=== PATIENT | female | born 1970 | race Caucasian/White ===

== ENCOUNTER 2020-01-07 11:00 | Outpatient (RCR) | payer OTHER, MEDICAID, SELFPAY ==
[2019-11-13 09:44] VITALS: BP_SYST 90
--- NOTE | 2019-11-13 10:44 | PTOPEVAL ---
PHYSICAL THERAPY EVALUATION AND PLAN OF CARE Thank you for referring Chanell Baugh to [facility]. Chanell is scheduled for PT 2x/week for 4-8weeks. Please review, sign, date and return this plan of care JENNIFER. I agree with and certify that the following plan of care is medically necessary. Referring Physician Date Attending Provider: Blaze Goodrich MD Evaluation Outpatient Past Medical History Neurological History Hx Migraine Yes Respiratory History Hx Respiratory Disorders No Significant History Gastrointestinal History Hx Gastrointestinal Disorders No Significant History Genitourinary History Hx Other Genitourinary Disorders Yes: only 1 kidney Endocrine History Hx Systemic Lupus Erythematosus Yes Evaluation Information Problem Diagnosis right adhesive capsulitis Onset 6months Subjective Information Chanell is here today with c/o Query Text:As Reported By Patient/ 6months of right shoulder pain Family and decreased use. 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 Cannot take her bra on/off and has a difficult time with deoderant application. She can reach the top of her head and pull up her pants. Self Report Pain Assessment Right Shoulder(s) Reported Pain Level 0 Pain Description Aching,Pulling Pain Frequency Chronic,Intermittent Lowest Pain Intensity 0 Greatest Pain Intensity 7 Pain Aggravating Factors Lifting Pain Relief Interventions Used By Medication Patient Other Alleviating Interventions Tylenol arthritis Pain Score Pain Score 0: Self Report Scapular/ Shoulder Range of Motion Right Shoulder Flexion - Active 115 Shoulder Flexion - Passive 120 Shoulder Abduction - Active 82 Shoulder Abduction - Passive 90 Shoulder Medial Rotation - Active S1 Query Text:Reach Behind the Back Shoulder Lateral Rotation - Active 60 Shoulder Lateral Rotation - Active occiput Query Text:Reach Behind the Head Scapular/Shoulder Right Shoulder Flexion Strength 4+ Good + Shoulder Abduction Strength 4+ Good + Shoulder Medial Rotation Strength 4+ Good + Shoulder Lateral Rotation Strength 4 Good Muscle Length Testing Latissmus Dorsi Muscle Length (R) Moderate Tightness Shoulder Internal Rotators Muscle Length (R) Severe Tightness Shoulder External Rotators Muscle Length (R) Severe Tightness Pectoralis Major- Clavicular Fibers (R) Moderate Tightness Muscle Length
--- NOTE | 2019-12-10 13:25 | PTOPEVAL ---
PHYSICAL THERAPY PROGRESS REPORT AND PLAN OF CARE UPDATE Thank you for referring Chanell Baugh to [facility].? The patient is scheduled to be seen for therapy? 2x/week for 4 weeks. Please review, sign, date and return this plan of care JENNIFER. I agree with and certify that the following plan of care is medically necessary. Referring Physician Date Attending Provider: Blaze Goodrich MD Progress Subjective: Chanell reports she is feeling as though the progress is really slow which is frustrating. She was able to do some weight bearing work during her yoga classes and felt that was overall easier. Continues to feel benefit from skilled PT. Self Report Pain Assessment Right Shoulder(s) Reported Pain Level 3 Pain Description Aching Pain Aggravating Factors Lifting Interventions Used By Clinicians Exercise,Heat,Manual Therapy Techniques Pain Score Pain Score 2: Self Report Additional Pain Score Comments dull ache from this weekend Upper Extremity Range of Motion Scapular/ Shoulder Range of Motion Right Shoulder Flexion - Active 134 Shoulder Flexion - Passive 140 Shoulder Abduction - Active 105 Shoulder Medial Rotation - Active S1 Query Text:Reach Behind the Back Shoulder Lateral Rotation - Active 65 Shoulder Lateral Rotation - Active T1 Query Text:Reach Behind the Head Upper Extremity Muscle Strength Testing Scapular/Shoulder Right Shoulder Flexion Strength 4+ Good + Shoulder Abduction Strength 5 Normal Shoulder Medial Rotation Strength 5 Normal Shoulder Lateral Rotation Strength 5 Normal Palpation improved trigger points in upper trapezius, subscapularis , and latissimus dorsi PT Clinical Summary Chanell is a 49 yo female participating in outaptient physical therapy with diagnosis of adhesive capsulitis. She demonstrates today progress toward meeting her functional goals with increased ROM in flexion and abduction. She continues to demonstrate significant limitation in ROM in rotational directions including behind her back. She will benefit from skilled PT to continue progressing to goals. PT Services Indicated Yes Rehabilitation Potential Excellent Patient/Caregiver's Personal Goals for return to normal function; do Rehabilitation yoga Potential Barriers to Goal Achievements None Support Requirements For Optimal None
--- NOTE | 2019-12-18 09:37 | PCPTNOTE ---
Patient called & cancelled scheduled appointment this date due to not having transportation
--- NOTE | 2019-12-31 11:53 | PCPTNOTE ---
Patient did not show up for scheduled appointment this date; Called patient to verify which she answered the phone realized she wrote the wrong date in the calendar. Patient is aware of appointment on Tuesday and stated she will be here.
--- NOTE | 2020-01-07 11:33 | PTOPEVAL ---
PHYSICAL THERAPY DISCHARGE NOTE Thank you for referring Chanell Baugh to [facility].? The patient will be discharged from therapy at this time. Please review, sign, date and return this plan of care JENNIFER. I agree with and certify that the following plan of care is medically necessary. Referring Physician Date Attending Provider: Blaze Goodrich MD Assessment Status Discharge Diagnosis right adhesive capsulitis Onset 6months Subjective Information Reports she is overall doing Query Text:As Reported By Patient/ well, but continues to have Family exceptional difficulty reaching behind her back. 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 Self Report Pain Assessment Right Shoulder(s) Reported Pain Level 3 Pain Description Aching,Dull,Tender on Palpation Pain Aggravating Factors Lifting Interventions Used By Clinicians Exercise,Heat,Manual Therapy Techniques Pain Score Scapular/ Shoulder Range of Motion Right Shoulder Flexion - Active 145 (11/12: 115, 12/09: 134) Shoulder Abduction - Active 128 (11/12: 82, 12/09: 105) Shoulder Medial Rotation - Active L4 (11/12, 12/09: S1) Query Text:Reach Behind the Back Shoulder Lateral Rotation - Active 72 (11/12: 60, 12/09: 65 Shoulder Lateral Rotation - Active T3 Query Text:Reach Behind the Head Upper Extremity Muscle Strength Testing Scapular/Shoulder Right Shoulder Flexion Strength 5 Normal Shoulder Abduction Strength 5 Normal Shoulder Medial Rotation Strength 5 Normal Shoulder Lateral Rotation Strength 5 Normal Palpation continues to be tenderness over pec muscles and subscapularis; improved trigger points to upper trapezius PT Clinical Summary Chanell has participated in physical therapy for 2 months with significant imporvement in range of motion for flexion , abduction, and external rotation and a significant improvement in right rotator cuff strength. She is participating in massage at least 1x/week and performing HEP. We will discharge at
== END 2020-01-08 13:03 | disposition home or self-care (01) ==
LOC: ANHPT 11:00
PROVIDERS: PCP Nurse Practitioner Family; Visit Provider Orthopaedic Surgery
DX: M75.01 Adhesive capsulitis of right shoulder (principal)
CPT/HCPCS: 97035; 97110; 97140; 97161; 97530

== ENCOUNTER 2020-09-14 13:16 | Emergency (ER) | payer OTHER, MEDICAID, SELFPAY ==
--- NOTE | 2020-09-14 13:23 | ED.SKABFB ---
HPI - Skin/Abscess/Foreign Bdy General Chief complaint: Skin/Abscess/Foreign Body Stated complaint: RASH Time Seen by Provider: 09/14/20 13:23 Source: patient and RN notes reviewed History of Present Illness HPI narrative: Patient is a 50-year-old female who presents the urgent care with complaints of a itchy rash to the abdomen. Patient states she went camping last weekend as well as went [place] see her grandmother's [place] multiple small tics. Patient states that on Tuesday she had a a black dot to the center of the abdomen that kept itching . Patient states she then woke up with the itchy rash over the last 24 hours. Patient states that she has been applying itch relief cream as well as cream for poison ros. Patient has also taken Benadryl. Patient states that she has not had a history of shingles and is uncertain if she did get bit by a tick. Denies of any body aches, fatigue, lethargy, fever, nausea, vomiting. No other acute complaints. No acute distress noted. Patient aware of the plan of care. Some parts of this dictation were generated by voice recognition software and may contain typographical and/or grammatical inaccuracies. Related Data Home Medications Medication Instructions Recorded Confirmed folic acid 1 mg PO DAILY 04/17/19 09/14/20 cholecalciferol (vitamin D3) 10 10 mcg PO DAILY 11/01/19 09/14/20 mcg (400 unit) capsule adalimumab 40 mg/0.8 mL 40 mg SUBCUT ONCE 07/23/20 09/14/20 subcutaneous syringe kit colchicine 0.5 mg PO USEASDIRECTD 09/14/20 09/14/20 hydroxychloroquine [Plaquenil] 200 mg PO DAILY 09/14/20 09/14/20 Allergies Allergy/AdvReac Type Severity Reaction Status Date / Time Penicillins Allergy Unknown Unknown Verified 09/14/20 13:38 Review of Systems Review of Systems: Narrative: CONSTITUTIONAL: Denies fever, chills, or sweats. EYES: Denies visual changes, redness, or discharge. ENT: Denies rhinorrhea, congestion, sore throat, or otalgia. CARDIOVASCULAR: Denies chest pain, palpitations, or edema. RESPIRATORY: Denies cough or dyspnea. GASTROINTESTINAL: Denies abdominal pain, nausea, vomiting, or diarrhea. GENITOURINARY: Denies dysuria or hematuria. SKIN: Reports of an itchy nonpainful red rash to the abdomen MUSCULOSKELETAL: Denies back pain, joint pain, or myalgia. NEUROLOGIC: Denies headache, numbness, or weakness. All other systems reviewed are negative, except as documented in HPI. [facility] Past Medical History Medical History (Updated 09/14/20 @ 13:55 by SAMIRA Morrell) Behcet's disease BMI 34.0-34.9,adult Depression Gout Lupus (systemic lupus erythematosus) Migraines Seasonal allergies Tendonitis left shoulder Trochanteric bursitis, left hip Surgical History Surgical History H/O section 2003, 2006 H/O inguinal hernia repair History of nephrectomy only one kidney left Hx of cholecystectomy Family History Family History Grandparent Family history of migraine headaches Family history of alcoholism Family history of malignant neoplasm of breast, Onset Age: 40 Diabetes mellitus Father Hypertension Patient's father is in good health Family history of alcoholism Cerebrovascular accident Mother Patient's mother is in good health Social History Social History Smoking status: Never smoker Alcohol intake: never Substance use: never Comments At the time of my signature, I reviewed and agree with the nursing past medical, surgical, social, and family history. There is no relevant family history pertinent to the patient complaint. Exam Narrative: Exam Narrative: GENERAL: This is a well-nourished, well-developed patient, in no apparent distress. HEAD: normocephalic, atraumatic. EYES: PERRL. Sclera clear/white. Vision is grossly int
[2020-09-14 13:41] VITALS: BP 107/73; PULSE 84; RESP 16; TEMP 36.6; O2SAT 99
== END 2020-09-14 14:07 | disposition home or self-care (01) ==
PROVIDERS: Emergency Provider Nurse Practitioner Family; PCP Nurse Practitioner Family
DX: L30.9 Dermatitis, unspecified (principal); M35.2 Behcet's disease; M10.9 Gout, unspecified; M32.9 Systemic lupus erythematosus, unspecified
CPT/HCPCS: 99213; G0463

== ENCOUNTER 2020-10-07 11:00 | Outpatient (RCR) | payer OTHER, MEDICAID, SELFPAY ==
--- NOTE | 2020-08-12 11:33 | PTOPEVAL ---
Thank you for referring Chanell Baugh to [facility].? The patient is scheduled to be seen for therapy 2 x/week for 5 weeks. Please review, sign, date and return this plan of care JENNIFER. I agree with and certify that the following plan of care is medically necessary. Referring Physician Date Attending Provider: Blzae Goodrich MD Physical Therapy Evaluation Diagnosis trochanteric bursitis left hip Onset 06/01 Subjective Information She got a new bed and thought Query Text:As Reported By Patient/ the pain was due to that. Pain Family was not improved with yoga. She report pain with yoga movement. The pain would wake her at night. She went to [place] in July with significant walking. Cont pain with the walking. She did wear good shoes with the walking. She c/o numbness in agapito leg with standing. 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 She did receive an injection on 07/23/20 which has helped. She is able to tolerate activities more without symptoms. Pain Assessment Left Hip(s) Reported Pain Level 2 Pain Description Tender on Palpation Pain Frequency Continuous Lowest Pain Intensity 1 Greatest Pain Intensity 4 Pain Aggravating Factors Exercise/Activity Pain Behaviors None Pain Score Pain Score 2: Self Report Cervical and Lumbar ROM Lumbar ROM Lumbar Flexion Active Ankle Query Text:Hands to: Lumbar ROM WNL Lumbar Comments tightness with motion Lower Extremity Range of Motion General Lower Extremity Range of Motion Reason Not Measured WNL/Left,WNL/Right Cervical and Lumbar Muscle Testing Lumbar Strength Upper Abdominal Strength 3 Fair Lower Abdominal Strength 3 Fair Lower Extremity Muscle Strength Testing General Lower Extremity Strength Gross Lower Extremity Strength right hip flex, knee ext/flex and hip ext grossly 5/5, hip abd: 3/5 left hip ext: 4-/5, hip abd: 3 /5, left hip flex, knee flex/ ext: 5/5 Muscle Length Testing Temo Test Shortened Muscles Short (R) Iliopsoas,Short (L) Iliopsoas,Short (R) Rectus Femoris,Short (
--- NOTE | 2020-08-25 16:13 | PCPTNOTE ---
Patient called & cancelled scheduled appointment this date due to not feeling well.
--- NOTE | 2020-09-16 09:50 | PCPTNOTE ---
Patient called & cancelled scheduled appointment this date due to having shingles. Did not reschedule at this time.
--- NOTE | 2020-10-07 15:40 | PTOPEVAL ---
Thank you for referring Chanell Baugh to [facility].? Chanell has received 9 therapy visits to address her hip impairments. She presents with an increase of her symptoms, increased pain and decreased tolerance with activities. She has partially achieved her therapy goals at this time. Recommend she f/u with her doctor due to limited progress with therapy and improved function. No additional therapy planned at this time, unless new orders received. If no additional therapy services request, this note will also be her discharge summary. Please review, sign, date and return this plan of care JENNIFER. I agree with and certify that the following plan of care is medically necessary. Referring Physician Date Attending Provider: Blaze Goodrich MD Physical Therapy Progress Note Diagnosis trochanteric bursitis left hip Onset 06/01 Additional Evaluation Detail She developed tio mountain fever after a camping trip in August. She has been limited on her HEP due to pain and medical changes. Subjective Information The pain in the left hip Query Text:As Reported By Patient/ continues to wake her night. Family She has intermittent numbness into the LE's to knee region. Cont to have left hip pain with the walking. She wears flip flops normally except with distance walking. She did receive an injection on 07/23/20 which has helped initially, but does seem to have wore off. REports increased pain with recent re-start of yoga stretches. Pain Assessment Pain Scale Used Numeric (1 - 10) Self Report Pain Assessment Left Hip(s) Reported Pain Level 5 Pain Description Numbness,Radiating,Tender on Palpation,Tightness,Tingling Pain Radiation Left Leg,Right Leg Pain Frequency Chronic,Continuous Lowest Pain Intensity 3 Greatest Pain Intensity 8 Pain Aggravating Factors Bending,Exercise/Activity, Lifting,Walking,Weight Bearing /Standing Cervical and Lumbar Muscle Testing Lumbar Strength Upper Abdominal Strength 3 Fair Lower Abdominal Strength 3 Fair Lumbar Functional Strength Comments unable to maintain trunk in midline with seated marching Lower Extremity Muscle Strength Testing Hip Strength Left Hip Flexion Strength 3 Fair Hip Extension Strength 4 Good Hip Abduction Strength 3 Fair
== END 2020-10-09 17:14 | disposition home or self-care (01) ==
LOC: ANHPT 11:00
PROVIDERS: PCP Nurse Practitioner Family; Visit Provider Orthopaedic Surgery
DX: M70.62 Trochanteric bursitis, left hip (principal); M54.16 Radiculopathy, lumbar region
CPT/HCPCS: 97014; 97110; 97140; 97162; 97530; G0283

== ENCOUNTER 2020-10-31 14:32 | Outpatient (CLI) | payer OTHER, MEDICAID, SELFPAY ==
--- NOTE | ~2020-10-31 | MR_ITS ---
EXAMINATION: MR lumbar spine wo con EXAM DATE: 10/31/2020 15:09 INDICATION: M54.16 - Radiculopathy, lumbar region. TECHNIQUE: Multi-sequential, multiplanar MR images of the lumbar spine were obtained without contrast . Sagittal T1, T2, T2 fat saturation images. Axial T2 weighted images. There is no prior study for comparison. FINDINGS: Rudimentary S1-S2 disc. The vertebral bodies are aligned in the AP dimension. Vertebral bod y and disc heights are well-maintained. There are no suspicious marrow signal abnormalities. The co nus medullaris terminates at the L1/2 level and has normal signal intensity and morphology. Probable severely atrophic right kidney measuring 2 x 3 cm, likely congenital. Level by level evaluation: L1-L2: There is a minimal diffuse disc bulge. Facet arthropathy: Mild. Neural foraminal stenosis: No stenosis. Central canal stenosis: No stenosis. L2-L3: Disc does not extend beyond the endplate margin. Facet arthropathy: Mild. Neural foraminal stenosis: No stenosis. Central canal stenosis: No stenosis. L3-L4: There is a minimal diffuse disc bulge. Facet arthropathy: Mild. Neural foraminal stenosis: No stenosis. Central canal stenosis: No stenosis. L4-L5: There is a mild diffuse disc bulge. Facet arthropathy: Mild. Neural foraminal stenosis: No stenosis. Central canal stenosis: No stenosis. L5-S1: There is a mild diffuse disc bulge. Facet arthropathy: Mild to moderate right, mild left. Neural foraminal stenosis: No stenosis. Central canal stenosis: No stenosis. IMPRESSION: 1. Mild lumbar spondylosis. No stenosis. 2. Severely atrophic right kidney. Reviewed, dictated and finalized at location A.
== END 2020-10-31 14:33 | disposition home or self-care (01) ==
LOC: ANHIMG 14:34
PROVIDERS: PCP Nurse Practitioner Family; Visit Provider Orthopaedic Surgery
DX: M54.16 Radiculopathy, lumbar region (principal); M47.816 Spondylosis without myelopathy or radiculopathy, lumbar region; N26.1 Atrophy of kidney (terminal)
CPT/HCPCS: 72148

== ENCOUNTER 2021-06-24 09:51 | Outpatient (CLI) | payer OTHER, MEDICAID, SELFPAY ==
--- NOTE | 2021-06-24 11:00 | NEURO_ITS ---
Impression: # Complains of numbness of lower extremities. History of Behcet?s Syndrome. # Normal nerve conduction study including F-waves. # Normal needle/EMG exam. # Clinical correlation recommended. Nerve Conduction Studies Anti Sensory Summary Table Stim Site NR Peak (ms) P-T Amp (?V) Site1 Site2 Delta-P (ms) Dist (cm) Sathish (m/s) Left Sup Fibular Anti Sensory (Ant Lat Mall) 14 cm 3.7 6.2 14 cm Ant Lat Mall 3.7 16.0 43 Right Sup Fibular Anti Sensory (Ant Lat Mall) 14 cm 3.4 11.9 14 cm Ant Lat Mall 3.4 16.0 47 Left Sural Anti Sensory Run #2 (Lat Mall) Calf 3.4 1.5 Calf Lat Mall 3.4 16.0 47 Right Sural Anti Sensory (Lat Mall) Calf 3.5 13.9 Calf Lat Mall 3.5 16.0 46 Motor Summary Table Stim Site NR Onset (ms) O-P Amp (mV) Site1 Site2 Delta-0 (ms) Dist (cm) Sathish (m/s) Left Peroneal Motor (Vastus Med) Ankle 4.9 2.9 Popit Ankle 7.5 37.0 49 Popit 12.4 0.7 Right Peroneal Motor (Vastus Med) Ankle 4.9 2.8 Popit Ankle 7.4 34.0 46 Popit 12.3 2.3 Left Tibial Motor (Abd Chase Brev) Ankle 4.9 11.0 Knee Ankle 8.1 39.0 48 Knee 13.0 7.6 Right Tibial Motor (Abd Chase Brev) Ankle 5.2 7.4 Knee Ankle 7.5 37.0 49 Knee 12.7 8.3 F Wave Studies NR F-Lat (ms) L-R F-Lat (ms) Left Peroneal (Mrkrs) (EDB) 45.99 0.68 Right Peroneal (Mrkrs) (EDB) 45.32 0.68 Left Tibial (Mrkrs) (Abd Hallucis) 46.10 0.59 Right Tibial (Mrkrs) (Abd Hallucis) 45.51 0.59 EMG Side Muscle Nerve Root Ins Act Fibs Amp Dur Recrt Comment Right AntTibialis Dp Br Fibular L4-5 Nml Nml Nml Nml Nml Right Gastroc Tibial S1-2 Nml Nml Nml Nml Nml Right Fibularis Long Sup Br Fibular L5-S1 Nml Nml Nml Nml Nml Right Flex Dig Long Tibial L5-S2 Nml Nml Nml Nml Nml Right Ext Dig Brev Dp Br Fibular L5, S1 Nml Nml Nml Nml Nml Left AntTibialis Dp Br Fibular L4-5 Nml Nml Nml Nml Nml Left Gastroc Tibial S1-2 Nml Nml Nml Nml Nml Left Fibularis Long Sup Br Fibular L5-S1 Nml Nml Nml Nml Nml Left Flex Dig Long Tibial L5-S2 Nml Nml Nml Nml Nml Left Ext Dig Brev Dp Br Fibular L5, S1 Nml Nml Nml Nml Nml Right QuadratusFem QuadFemoris L4-5, S1 Nml Nml Nml Nml Nml Left QuadratusFem QuadFemoris L4-5, S1 Nml Nml Nml Nml Nml MTDD
== END 2021-06-24 09:52 | disposition home or self-care (01) ==
LOC: ANHNEURO 09:52
PROVIDERS: PCP Nurse Practitioner Family; Visit Provider Nurse Practitioner Family
DX: G62.9 Polyneuropathy, unspecified (principal)
CPT/HCPCS: 95886; 95910

== ENCOUNTER 2022-02-16 11:40 | Outpatient (CLI) | payer OTHER, MEDICAID, SELFPAY | END 2022-02-16 11:41 | disposition home or self-care (01) | LOC: ANHLAB 11:41 | PROVIDERS: PCP Nurse Practitioner Family; Visit Provider Obstetrics & Gynecology | DX: N94.6 Dysmenorrhea, unspecified (principal) | CPT/HCPCS: 36415; 86850; 86900; 86901 ==

== ENCOUNTER 2022-02-17 00:39 | Day surgery (SDC) | payer OTHER, MEDICAID, SELFPAY ==
[2022-02-15 16:56] VITALS: BMI 32.8
--- NOTE | 2022-02-15 17:31 | PC.NURSE ---
Report to the Outpatient Waiting Room, entrance under the green pavilion located off [facility], at time 0600 on date _02/17/22. Planned Procedure Time: 0730. Time changes happen often and if your time is changed the preop area will call you the afternoon before. - You and your visitor will be asked to self-screen and do not enter if you have any COVID symptoms. - We encourage only one visitor and NO visitors under age 16 are allowed at this time. Your visitor will receive communication by the phone number that is given day of service. - The patient visitor is requested to social distance or may leave the building when not with patient due to restrictions. - A mask is required within the hospital. Patients may have clear liquids (water, carbonated beverages, clear teas, apple juice) until 3 hours prior to surgery with a maximum of 20 ounces. - No food from midnight until time of surgery - Infants may have breast milk until 4 hours before surgery, formula 6 hours prior to surgery. - Children will be allowed to drink immediately following surgery. If applicable, please bring a bottle or sippy cup to assist with drinking. Juice, water, soda, and popsicles are readily available. For infants on formula, please bring formula the day of surgery. Pacifiers are allowed. Take the following medications with a SIP of water the morning of surgery: Medications to discontinue per physician _folic acid, vitamin d Date to take last dose 02/14/22 Please no make-up, nail sammarinese, hairspray, perfume, deodorant, or body powder the day of surgery. No jewelry (including any body piercings) or valuables the day of surgery, leave them at home. Please take a shower or bath the night before, or the morning of, surgery with an antibacterial soap. Wear comfortable, loose fitting clothing. Children are encouraged to wear pajamas. - Jewelry must be removed prior to entering the operating room. Rings and piercings that are not removed may be cut off. - The hospital will not accept responsibility for valuables. - Please leave all valuables, including medications, at home the day of surgery. If you are going home after surgery, a licensed skidder driver must drive you home. - NO public transportation without another adult. - We recommend that an adult stay with you for 24 hours following discharge. - We also recommend that you do not drive, make important decision, drink alcoholic beverages, or take any drugs that were not prescribed by your health care provider for at least 24 hours after your discharge time. For Pediatric surgeries, we recommend two adults accompany the child home. Follow any additional instructions given to you from your surgeon. If you or anyone in your household have experienced Covid symptoms in the past week, please notify your surgeon or the nurse liaison at the phone number below for possible testing. Telephone instructions given to Chanell Baugh and asked if any additional questions and then verbalized understanding. Patient advised to call surgeon office or pre surgery nurse liaison [phone] if any additional questions.
[2022-02-17] VITALS (10 sets, daily range): BP systolic 99–120; BP diastolic 65–79; PULSE 65–98; RESP 14–20; TEMP 36–36.9; O2SAT 90–100
[2022-02-17] MEDS: LACTATED RINGERS 1,000 ML 150 ML IV CONT (06:41)
[2022-02-17] MEDS: ACETAMINOPHEN 500 MG TABLET 1000 MG PO (06:47)
[2022-02-17] MEDS: KETOROLAC 15 MG/ML VIAL (*BKC) IV PUSH (06:47)
--- NOTE | 2022-02-17 06:51 | WPDANESEPPF ---
Anes - Initial Pre Proc Eval Procedure: Operation Date: 02/17/22 07:30 Proposed Procedures p Total Laparoscopic Hysterectomy, Bilateral Salpingectomy - Maureen Pino MD Date/Time: 02/17/22 06:51 Surgeon: Maureen Pino MD Pre Op Diagnosis: dysmenorrhea Patient Data Age: 52 Gender: F Height: 1.6 m Weight: 85.9 kg Last Vital Signs Temp 36.9 C 02/17/22 06:28 Pulse 82 02/17/22 06:28 Resp 16 02/17/22 06:28 BP 117/66 02/17/22 06:28 Pulse Ox 98 02/17/22 06:28 O2 Del Method Room Air 02/17/22 06:28 Allergies Allergy/AdvReac Type Severity Reaction Status Date / Time Penicillins Allergy Unknown Unknown Verified 02/17/22 06:18 Home Medications Medication Instructions Recorded Confirmed Type folic acid 1 mg tablet 1 mg PO DAILY 04/17/19 02/17/22 History cholecalciferol (vitamin D3) 10 10 mcg PO DAILY 11/01/19 02/17/22 History mcg (400 unit) capsule hydroxychloroquine 200 mg tablet 200 mg PO DAILY 09/14/20 02/17/22 History (Plaquenil) amitriptyline 10 mg tablet 10 mg PO HS 02/15/22 02/17/22 History infliximab 100 mg intravenous 100 mg IV MONTHLY 02/15/22 02/17/22 History solution (Remicade) methotrexate sodium 2.5 mg tablet 2.5 mg PO WEEKLY 02/15/22 02/17/22 History norethindrone-e.estradiol 1 tablet PO DAILY 02/15/22 02/17/22 History triphasic 0.5 mg/0.75 mg/1 mg-35 mcg tablet sertraline 100 mg tablet 100 mg PO DAILY 02/15/22 02/17/22 History tirzepatide 2.5 mg/0.5 mL 2.5 mg subcut WEEKLY 02/15/22 02/17/22 History subcutaneous pen injector (Mounjaro) Patient hx anesthesia problems: none Family hx anesthesia problems: none Results Review: All pre-operative results and documents have been reviewed as part of the pre-operative evaluation. [facility] [place] Past Medical History Medical History Behcet's disease BMI 34.0-34.9,adult Depression Gout Lumbar and sacral arthritis Lupus (systemic lupus erythematosus) Migraines Seasonal allergies Tendonitis left shoulder Trochanteric bursitis, left hip Surgical History Surgical History H/O section 2003, 2006 H/O inguinal hernia repair History of nephrectomy only one kidney left Hx of cholecystectomy Family History Family History Grandparent Family history of migraine headaches Family history of alcoholism Family history of malignant neoplasm of breast, Onset Age: 40 Diabetes mellitus Father Hypertension Patient's father is in good health Family history of alcoholism Cerebrovascular accident Mother Patient's mother is in good health Social History Social History Smoking status: Never smoker Alcohol intake: never Substance use: never Living arrangements: with family Spiritual care concerns: No Anes - Eval Final PreProcedure Day of Procedure 02/17/22 06:51 Patient weight: obese Heart: regular rate and rhythm Lungs: clear to auscultation Airway: Mallampati scale class II Neurological: alert and oriented Last oral intake: >/= 8 hours ASA classification: III Emergent: no Anesthetic plan: proceed Anesthesia type and monitoring: general ETT and standard monitoring Results Review: All pre-operative results and documents have been reviewed as part of the pre-operative evaluation. Informed Consent: The patient's anesthetic plan and its attendant risks and benefits were discussed with the patient/family/POA. Questions were solicited and answers provided to the satisfaction of the patient/family/POA.
--- NOTE | 2022-02-17 07:15 | WPDHPUPDATE1 ---
History and Physical Update Update Date/Time: 02/17/22 07:15 History and Physical has been reviewed, including an updated exam of the patient. There are NO changes in the patient's condition. Risks, benefits, and alternatives have been discussed and questions answered. Patient agrees to proceed with procedure.
[2022-02-17] MEDS: ceFAZolin 2 GM/D5W 50 ML 2 GM/50 ML BAG IVPB (07:26)
[2022-02-17] MEDS: ceFAZolin SODIUM 1 GM VIAL (08:33)
[2022-02-17] MEDS: LACTATED RINGERS 1,000 ML 30 ML IV CONT (09:31)
--- NOTE | 2022-02-17 09:52 | W.PM.PROC2 ---
Procedure Note - Detailed Date of Procedure 02/17/22 Pre-op Diagnosis dysmenorrhea Post-op Diagnosis Same Procedure Performed Total laparoscopic hysterectomy. Surgeon Maureen Pino MD Anesthesia General Description of Procedure This patient was taken to the operating room. She was prepped and draped in the dorsal lithotomy position after induction of general anesthesia. The uterine manipulator and Talib cup were placed. This was done with a speculum and tenaculum. The speculum was placed. The cervix was grasped with a tenaculum. The stay sutures were placed at 3 and 9:00 a.m.. The stay sutures of 0 Vicryl were brought through the appropriately sized Talib cup. The tip of the EULALIA manipulator was placed in the intrauterine cavity. The cup was slid into place around the cervix and into the fornices. It was locked into place. The sutures were then wrapped around the handle and tied under tension. A 5 mm skin incision was made in the left upper quadrant the abdomen. A 5 mm trocar was inserted into the intrauterine cavity under direct visualization of the scope. Pneumoperitoneum was achieved. A left lower quadrant 11 mm incision was made with scalpel. An 11 mm trocar was inserted into the anterior abdominal cavity under direct visualization the scope. A 5 mm infraumbilical incision was made with a scalpel and a 5 mm trocar was inserted the intra-abdominal cavity under direct visualization of the scope. Bilateral ureteral lysis was performed. This was done from the pelvic brim down to the uterine artery. This was done with careful dissection using sharp and blunt dissection. The fallopian tubes were removed bilaterally. The mesosalpinx around the fallopian tubes were cauterized transected with LigaSure cautery. This was done in a bilateral fashion from the ovary to the uterine cornua. The fallopian tube was transected at the uterine cornu and amputated. The tube was taken out the left lower quadrant trocar site. In a stepwise fashion along the lateral aspects of the uterus the round ligament and broad ligaments were cauterized transected down to the level of the uterine arteries. A bladder flap was created in the bladder was moved distally to the end of the cervix and over the Talib cup. The bilateral uterine arteries were cauterized and transected. Colpotomy was then performed. In a circumferential fashion the vagina was transected using unipolar cautery. The incision was made down on the Talib cup. The uterus and cervix were taken out through the vagina. A pneumo occluder was placed in the vagina. The vaginal cuff was closed with a 0 V lock suture in a running fashion. The pelvis was irrigated with copious amounts antibiotic irrigation. The ureters were again examined and found to be intact and flowing freely under the uterine arteries into the bladder. The bladder was intact. It was examined directly. The vagina was irrigated with Betadine solution after removal of the Pneumo occluder. The patient was taken to recovery room. She was stable condition. Sponge lap and needle counts were correct x2. Estimated Blood Loss 200 Drains Yes Packing No Pathology Yes Complications No immediate complications Condition Stable Disposition Floor
[2022-02-17] MEDS: fentaNYL CITRATE INJ (*CRX) 100 MCG/2 ML VIAL 25 MCG IV PUSH ×3 (10:09→10:33)
[2022-02-17] MEDS: KETOROLAC 30 MG/ML VIAL (*BKC) IV PUSH (11:00)
[2022-02-17] MEDS: DEXTROSE 5%/0.45% SOD CHL 1,000 ML 125 ML IV CONT (11:00)
[2022-02-17] MEDS: HYDROcodone/acetaminophen (*CRX) 10-325 MG TABLET 1 TAB PO ×3 (15:31→21:18)
[2022-02-17] MEDS: AMITRIPTYLINE HCL 10 MG TABLET PO (19:59)
[2022-02-17] MEDS: HYDROXYCHLOROQUINE SULFATE 200 MG TABLET PO (19:59)
[2022-02-17] MEDS: CHOLECALCIFEROL 400 UNITS TABLET (VIT D) PO (20:01)
[2022-02-17] MEDS: FOLIC ACID 1 MG TABLET PO (20:01)
[2022-02-17] MEDS: SERTRALINE HCL 50 MG TABLET 100 MG PO (20:01)
[2022-02-18] MEDS: HYDROcodone/acetaminophen (*CRX) 5-325 MG TABLET 1 TAB PO ×2 (04:12→07:36)
[2022-02-18 04:15] VITALS: BP 105/62; PULSE 78; RESP 16; TEMP 36.6; O2SAT 95
[2022-02-18 07:45] VITALS: BP 114/61; PULSE 78; RESP 16; TEMP 37.4; O2SAT 99
--- NOTE | 2022-02-18 07:50 | WPDANESPN ---
Anes - Prog Note Post-Op Date/Time: 02/18/22 07:50 Cardiovascular status: normal Respiratory status: normal Airway patency: baseline Mental status: baseline Post-Op hydration status: normal Vital Signs: Last Vital Signs Temp 36.6 C 02/18/22 04:15 Pulse 78 02/18/22 04:15 Resp 16 02/18/22 04:15 BP 105/62 02/18/22 04:15 Pulse Ox 95 02/18/22 04:15 O2 Del Method Nasal Cannula 02/17/22 10:45 O2 Flow Rate 2 02/17/22 10:45 Pain Score (VAS): 06/18 I/O: Intake & Output 02/17/22 02/17/22 02/18/22 15:59 23:59 07:59 Intake Total 350 1000 Output Total 320 350 Balance 30 650 Post-procedural complaints: none Patient Feedback: Patient satisfied with anesthetic care.
--- NOTE | 2022-02-18 08:13 | PM.GYNPNOP ---
AUTO REFINISHER - A/P Postoperative Procedures: Procedures Operation Date: 02/17/22 07:30 Actual Procedure Side Surgeon p Total Laparoscopic Hysterectomy, Bilateral Salpingectomy Bilateral Maureen Pino MD Postoperative day: 1 Postoperative status: doing well Postoperative plan: see orders Time Spent With Patient Time: Total time spent is greater than 50% in coordination of care (as documented) at patient's floor/unit and/or counseling patient: Time with patient: less than 15 minutes AUTO REFINISHER- PN:Subj Post-Op Subjective Date/time seen: 02/18/22 08:13 Subjective: patient reports feeling better, patient has no complaints and pain is well controlled Exam Const: General: healthy appearing, comfortable and no acute distress Resp: Auscultation: clear to auscultation bilaterally, no rales, no rhonchi and no wheezes Cardio: Rate: regular rate Heart sounds: no click, no murmurs and no rubs GI: Inspection: non-distended Auscultation: normal bowel sounds Extrem: General: normal to inspection, no pedal edema and no calf tenderness AUTO REFINISHER - PN: Obj Data Vital Signs Vital Signs: Vital Signs - 24 hr 02/17/22 09:31 02/17/22 09:45 02/17/22 10:00 Temperature 97.5 F L Pulse Rate 76 72 66 Respiratory Rate 16 14 18 Blood Pressure 117/72 99/71 L 110/75 Pulse Oximetry 100 100 100 Oxygen Delivery Simple Face Mask Simple Face Mask Simple Face Mask Oxygen Flow Rate 6 6 6 02/17/22 10:05 02/17/22 10:20 02/17/22 10:35 Temperature 96.9 F L Pulse Rate 74 70 65 Respiratory Rate 20 14 16 Blood Pressure 119/65 113/79 108/68 Pulse Oximetry 100 90 96 Oxygen Delivery Room Air Nasal Cannula Nasal Cannula Oxygen Flow Rate 2 2 02/17/22 10:45 02/17/22 10:45 02/17/22 18:36 Temperature 96.8 F L 98.3 F Pulse Rate 65 66 89 Respiratory Rate 16 14 18 Blood Pressure 117/71 120/67 Pulse Oximetry 96 97 96 Oxygen Delivery Nasal Cannula Oxygen Flow Rate 2 02/17/22 23:45 02/18/22 04:15 02/18/22 04:15 Temperature 98.4 F 98 F Pulse Rate 98 78 78 Respiratory Rate 16 16 16 Blood Pressure 113/69 105/62 Pulse Oximetry 95 95 95 Oxygen Delivery Oxygen Flow Rate Intake/Output Intake/Output: Intake & Output 02/15/22 02/16/22 02/17/22 02/18/22 23:59 23:59 23:59 23:59 Intake Total 1400 Output Total 670 Balance 730 Meds/Results Medications: Active Medications Generic Name Dose Route Start Last Admin Trade Name Freq PRN Reason Stop Dose Admin Hydrocodone Bitart/Acetaminophen 1 tab 02/17/22 10:41 02/18/22 07:36 Hydrocodone/Acetaminophen (*Crx) 5-325 Mg Tablet PO 1 tab Q3H PRN Administration Pain Rated 5 or Less Hydrocodone Bitart/Acetaminophen 1 tab 02/17/22 10:41 02/17/22 21:18 Hydrocodone/Acetaminophen (*Crx) 10-325 Mg Tablet PO 1 tab Q3H PRN Administration Pain Rated 6 or Greater Amitriptyline HCl 10 mg 02/17/22 21:00 02/17/22 19:59 Amitriptyline Hcl 10 Mg Tablet PO 10 mg HS TRA Administration Folic Acid 1 mg 02/17/22 11:00 02/17/22 20:01 Folic Acid 1 Mg Tablet PO 1 mg DAILY TRA Administration Hydroxychloroquine Sulfate 200 mg 02/17/22 21:00 02/17/22 19:59 Hydroxychloroquine Sulfate 200 Mg Tablet PO 200 mg HS TRA Administration Ibuprofen 600 mg 02/17/22 10:41 Ibuprofen 600 Mg Tablet PO Q6H PRN Cramping Ketorolac Tromethamine 30 mg 02/17/22 10:41 02/17/22 11:00 Ketorolac 30 Mg/Ml Vial (*Bkc) IV PUSH 02/22/22 10:40 30 mg Q6H PRN Administration Pain Rated 4-6 Methotrexate 2.5 mg 02/24/22 09:00 Methotrexate 2.5 Mg Tab (*Chemo) PO WEEKLY TRA Miscellaneous Information 0 each 02/17/22 00:01 Norethindrone-Estradial Nonform Can Pt Bring From Home? XX 03/19/22 00:00 CLARIFY TRA Miscellaneous Information 0 each 02/17/22 00:01 Methotrexate 2.5mg 4 Times Weekly Please Clarify Days Of Week Pt Takes And When Next Dose XX 03/19/22 00:00 CLARIFY TRA Miscellaneous Information 0 e
== END 2022-02-18 10:51 | disposition home or self-care (01) ==
LOC: ANHSURGERY 06:09 → ANHOB2 10:44
PROVIDERS: PCP Nurse Practitioner Family; Visit Provider Obstetrics & Gynecology
PROC: 0UT9FZZ Resection of Uterus, Via Natural or Artificial Opening With Percutaneous Endoscopic Assistance (ICD-10-PCS; CPT 58571; principal; 2022-02-17 07:30)
DX: N94.6 Dysmenorrhea, unspecified (principal); D25.9 Leiomyoma of uterus, unspecified; N72 Inflammatory disease of cervix uteri; N83.8 Other noninflammatory disorders of ovary, fallopian tube and broad ligament; M35.2 Behcet's disease; M32.9 Systemic lupus erythematosus, unspecified; F32.A Depression, unspecified; Z90.5 Acquired absence of kidney; E66.9 Obesity, unspecified; Z68.33 Body mass index [BMI] 33.0-33.9, adult
CPT/HCPCS: 58571; 88307; 88342; 99199; A9270; J0330; J0461; J0690; J1100; J1885; J2250; J2370; J2405; J2704; J2710; J3010; J7030; J7120

== ENCOUNTER 2022-09-16 12:33 | Outpatient (CLI) | payer OTHER, MEDICAID, SELFPAY ==
--- NOTE | ~2022-09-16 | MR_ITS ---
MRI of the right elbow Clinical history: Pain TECHNIQUE: Proton-density and proton-density fat-sat images were acquired in the axial, coronal, and sagittal planes. FINDINGS: Ulnar collateral ligament is intact. Radial collateral ligament and the lateral ulnar colla teral ligament are intact. There is high-grade partial tearing at the common extensor tendon origin a t the lateral epicondyle of the humerus. Common flexor tendon origin is unremarkable. Bone marrow signals are unremarkable. No articular abnormality of the elbow evident. No significant e lbow joint effusion. Brachialis, biceps, and triceps tendons are intact. Visualized muscles demonstrate normal signal inte nsity. Subcutaneous soft tissues are unremarkable. IMPRESSION: High-grade partial tearing of the common extensor tendon origin at the lateral epicondyle of the randy yvan. Reviewed, dictated and finalized at location . IMPRESSION: High-grade partial tearing of the common extensor tendon origin at the lateral epicondyle of the humerus.
== END 2022-09-16 12:34 | disposition home or self-care (01) ==
LOC: ANHIMG 12:35
PROVIDERS: PCP Nurse Practitioner Family
DX: S53.491A Other sprain of right elbow, initial encounter (principal); X58.XXXA Exposure to other specified factors, initial encounter
CPT/HCPCS: 73221

== ENCOUNTER 2023-01-10 01:06 | Day surgery (SDC) | payer OTHER, MEDICAID, SELFPAY ==
[2023-01-05 12:39] VITALS: BMI 29.5
--- NOTE | 2023-01-05 12:45 | PC.NURSE ---
Report to the Outpatient Waiting Room, entrance under the green pavilion located off [facility], at time 0600 on date 01/10/23. Planned Procedure Time: 0730. Time changes happen often and if your time is changed the preop area will call you the afternoon before. - You and your visitor will be asked to self-screen and do not enter if you have any COVID symptoms. - A mask is optional within the hospital at this time. Patients may have clear liquids (water, carbonated beverages, clear teas, apple juice) until 3 hours prior to surgery with a maximum of 20 ounces. - No food from midnight until time of surgery Take the following medications with a SIP of water the morning of surgery: NONE DO NOT STOP ANY OF YOUR OTHER PRESCRIPTION MEDICATIONS PRIOR TO SURGERY ?EXCEPT THE FOLLOWING Medications to discontinue per physician: VITAMINS/SUPPLEMENTS Date to take last dose: 01/06/23 DO NOT TAKE WEEKLY (TUESDAY) DOSE OF MOUNJARO Please no make-up, nail portuguese, hairspray, perfume, deodorant, or body powder the day of surgery. No jewelry (including any body piercings) or valuables the day of surgery, leave them at home. Please take a shower or bath the night before, or the morning of, surgery with an antibacterial soap. Wear comfortable, loose fitting clothing. - Jewelry must be removed prior to entering the operating room. Rings and piercings that are not removed may be cut off. - The hospital will not accept responsibility for valuables. - Please leave all valuables, including medications, at home the day of surgery. If you are going home after surgery, a licensed river driver must drive you home. - NO public transportation without another adult if you receive anesthesia. - We recommend that an adult stay with you for 24 hours following discharge. - We also recommend that you do not drive, make important decision, drink alcoholic beverages, or take any drugs that were not prescribed by your health care provider for at least 24 hours after your discharge time. Follow any additional instructions given to you from your surgeon. If you or anyone in your household have experienced Covid symptoms in the past week, please notify your surgeon or the nurse liaison at the phone number below for possible testing. Telephone instructions given to PT - JAZMYNE ROBIN and asked if any additional questions and then verbalized understanding. Patient advised to call surgeon office or pre surgery nurse liaison [phone] if any additional questions.
[2023-01-10] VITALS (9 sets, daily range): BP systolic 106–132; BP diastolic 60–83; PULSE 79–98; RESP 15–18; TEMP 36.2–36.5; O2SAT 92–100
[2023-01-10] MEDS: KETOROLAC 15 MG/ML VIAL (*BKC) IV PUSH (06:42)
[2023-01-10] MEDS: ACETAMINOPHEN 500 MG TABLET 1000 MG PO (06:42)
--- NOTE | 2023-01-10 07:15 | WPDANESEPPF ---
Anes - Initial Pre Proc Eval Procedure: Operation Date: 01/10/23 07:30 Proposed Procedures p Debridement of Right Lateral Epicondyle - Blaze Goodrich MD Date/Time: 01/10/23 07:15 Surgeon: Blaze Goodrich MD Pre Op Diagnosis: Right Lateral Epicondylitis Patient Data Age: 52 Gender: F Height: 1.6 m Weight: 75.75 kg Allergies Allergy/AdvReac Type Severity Reaction Status Date / Time Penicillins Allergy Unknown Unknown Verified 01/05/23 12:37 Home Medications Medication Instructions Recorded Confirmed Type folic acid 1 mg tablet 1 mg PO DAILY 04/17/19 01/05/23 History amitriptyline 10 mg tablet 10 mg PO HS 02/15/22 01/05/23 History infliximab 100 mg intravenous 100 mg IV MONTHLY 02/15/22 01/05/23 History solution (Remicade) methotrexate sodium 2.5 mg tablet 2.5 mg PO WEEKLY 02/15/22 01/05/23 History sertraline 100 mg tablet 100 mg PO HS 02/15/22 01/05/23 History tirzepatide 2.5 mg/0.5 mL 2.5 mg subcut WEEKLY 02/15/22 01/05/23 History subcutaneous pen injector (Mounjaro) duloxetine 30 mg capsule,delayed 30 mg PO HS 01/05/23 01/05/23 History release Patient hx anesthesia problems: none Family hx anesthesia problems: none Results Review: All pre-operative results and documents have been reviewed as part of the pre-operative evaluation. [facility] Past Medical History Medical History Behcet's disease BMI 34.0-34.9,adult Depression Gout Impingement of left shoulder Lumbar and sacral arthritis Lupus (systemic lupus erythematosus) Migraines Right lateral epicondylitis Seasonal allergies Tendonitis left shoulder Trochanteric bursitis, left hip Surgical History Surgical History H/O section 2003, 2006 H/O inguinal hernia repair History of nephrectomy only one kidney left History of partial hysterectomy Hx of cholecystectomy Family History Family History Grandparent Family history of migraine headaches Family history of alcoholism Family history of malignant neoplasm of breast, Onset Age: 40 Diabetes mellitus Father Hypertension Patient's father is in good health Family history of alcoholism Cerebrovascular accident Mother Patient's mother is in good health Social History Social History Smoking status: Never smoker Alcohol intake: current Alcohol use details: VERY RARE Substance use: never Substance use type: does not use Lack of Transportation: No Lack of Food: Never True Current Housing: I Have Housing Concerned About Future Housing: No Difficulty Paying Gas/Electric Bills: No Difficulty Paying for Meds: No Currently Unemployed: No Education: Associate Degree Difficulty w/ Childcare or Family Care: No Living arrangements: with family Occupation/Education: unemployed Spiritual care concerns: No Anes - Eval Final PreProcedure Day of Procedure 01/10/23 07:15 Patient weight: overweight Heart: regular rate and rhythm Lungs: clear to auscultation Airway: Mallampati scale class II Neurological: alert and oriented Last oral intake: >/= 8 hours ASA classification: III Emergent: no Anesthetic plan: proceed Anesthesia type and monitoring: general GIVS and standard monitoring Results Review: All pre-operative results and documents have been reviewed as part of the pre-operative evaluation. Informed Consent: The patient's anesthetic plan and its attendant risks and benefits were discussed with the patient/family/POA. Questions were solicited and answers provided to the satisfaction of the patient/family/POA.
--- NOTE | 2023-01-10 07:17 | WPDHPUPDATE1 ---
History and Physical Update Update Date/Time: 01/10/23 07:17 History and Physical has been reviewed, including an updated exam of the patient. There are NO changes in the patient's condition. Risks, benefits, and alternatives have been discussed and questions answered. Patient agrees to proceed with procedure.
[2023-01-10] MEDS: ceFAZolin 2 GM/D5W 50 ML 2 GM/50 ML BAG IVPB (07:28)
[2023-01-10] MEDS: BUPIVACAINE/EPINEPHRINE 0.5% 10 ML VIAL INFILTRATE (07:55)
[2023-01-10] MEDS: LACTATED RINGERS 1,000 ML 30 ML IV CONT (08:09)
--- NOTE | 2023-01-10 08:14 | P.OP_ITS ---
Procedure Note - Detailed Date of Procedure 01/10/23 Pre-op Diagnosis Right Lateral Epicondylitis Post-op Diagnosis Same Procedure Performed Debride right lateral epicondyle with partial epicondylectomy Surgeon Blaze Goodrich MD Maintenance Technician [employer]d Shift Wenceslao Anesthesia General Description of Procedure The patient was identified and the proper side identified. Was taken the operating room transferred to the OR table placing her supine take care to pad her torso and extremities. After general anesthetic induction and intubation, nonsterile tourniquet was placed high on the right arm. Right upper extremity was prepped and draped in usual sterile fashion. Extremity was exsanguinated and the tourniquet was inflated to 200 millimeters of mercury remaining up for about 20 minutes. Longitudinal incision was made over the lateral epicondyle and common extensor origin. Subcutaneous tissue was sharply dissected protecting neurovascular structures down to the lateral epicondyle. Forearm fascia was freed up off of the tendinous origin which revealed an area of hyperemia. Tendon was released from the lateral condyle divided in a T-fashion. Degenerative tendon was removed from within. Partial epicondylectomy was performed. Wound was irrigated. Surgical site was then injected with a few cc of 0.5% Marcaine and epinephrine solution. As where the deeper layers of the subcu. Skin was reapproximated with 3-0 Prolene subcuticular stitch and Steri- Strips were applied. Dressing was applied. Tourniquet was released. She tolerated the procedure well. She was awakened, extubated and taken to recovery area in stable condition. There were no known intraoperative complications. Estimated blood loss was negligible. She received perioperative antibiotics. Estimated Blood Loss 3 Pathology None sent Complications No immediate complications Condition Stable Disposition PACU [facility] Billing Surgery - Charge Forward: Surgery Billing ([id number])
[2023-01-10] MEDS: ONDANSETRON INJ 4 MG/2 ML VIAL IV PUSH (08:22)
[2023-01-10] MEDS: SCOPOLAMINE 1.5 MG PATCH TRANSDERM (08:57)
[2023-01-10] MEDS: oxyCODONE HCL (*CRX) 5 MG TAB IR PO (09:28)
== END 2023-01-10 09:55 | disposition home or self-care (01) ==
PROVIDERS: PCP Nurse Practitioner Family; Visit Provider Orthopaedic Surgery
PROC: (CPT 24110; principal; 2023-01-10 07:30)
DX: M77.11 Lateral epicondylitis, right elbow (principal); M35.2 Behcet's disease; M32.9 Systemic lupus erythematosus, unspecified; M10.9 Gout, unspecified; F32.A Depression, unspecified; Z79.620 Long term (current) use of immunosuppressive biologic; Z79.631 Long term (current) use of antimetabolite agent; Z79.85 Long-term (current) use of injectable non-insulin antidiabetic drugs; Z90.5 Acquired absence of kidney
CPT/HCPCS: 24140; A4565; A9270; J0690; J1100; J1885; J2250; J2371; J2405; J2704; J3010; J7120